=== PATIENT | male | born 1950 | race Two or more races ===

== ENCOUNTER 2019-07-02 07:51 | Emergency (ER) | payer OTHER ==
[~2019-07-02] VITALS: Ht 167.6 cm; Wt 113.4 kg
[2019-07-02 08:40] LABS: Platelet Count (auto) 92 10^3/uL (140-450); White Blood Cell 2.8 10^3/uL (4.4-10.8)
[2019-07-02 08:42] LABS: Hematocrit 38.5 % (41.0-53.0); Hemoglobin 13.1 g/dL (13.5-17.5); Mean Corpuscular Hemoglobin 34.6 pg (28.0-32.0); Mean Corpuscular Hgb Conc. 34.1 g/dL (32.0-36.0); Mean Corpuscular Volume 101.5 fL (80.0-100.0)
[2019-07-02 08:48] LABS: Basophils % (manual) 0 (0.0-2.0); Blast Cells 0; Metamyelocytes % 0; Myelocytes % 0; Promyelocytes % 0; Reactive Lymphocytes 0
[2019-07-02 08:58] LABS: Albumin 3.7 g/dL (3.4-5.0); BUN/Creatinine Ratio 8.5; Calcium 8.2 mg/dL (8.5-10.1); Potassium 4.3 mmol/L (3.5-5.1)
[2019-07-02 09:03] LABS: Bilirubin, Total 2.3 mg/dL (0.2-1.0); Total Protein 7.3 g/dL (6.4-8.2)
[2019-07-02 10:07] LABS: Band Neutrophils % (manual) 12; Lymphocytes % (manual) 19 (10.0-50.0)
[2019-07-02 10:08] LABS: Eosinophils % (manual) 7 (0-7); Monocytes % (manual) 11 (0-12)
[2019-07-02 11:09] LABS: Amphetamine Screen, Urine NEGATIVE (NEGATIVE); Barbiturate Scree,Urine NEGATIVE (NEGATIVE); Benzodiazephine Screen, Urine NEGATIVE (NEGATIVE); Cannabinoid Screen, Urine POSITIVE (NEGATIVE); Cocaine Screen, Urine NEGATIVE (NEGATIVE); Opiate Scree,Urine NEGATIVE (NEGATIVE); Phencyclidine Screen, Urine NEGATIVE (NEGATIVE)
[2019-07-02] MEDS ORDERED: THIAMINE 100mg/ml INJ (200mg/2ml VIAL) IV ONE (11:15)
[2019-07-02] MEDS ORDERED: SODIUM CHLORIDE 0.9% 1,000 ML IV ONE (11:15)
[2019-07-02] MEDS ORDERED: traMADol HCL 50 MG TAB PO PRN (21:00)
[2019-07-02] MEDS ORDERED: NAPROXEN 500 MG TAB PO PRN (21:00)
[2019-07-02] MEDS ORDERED: cloNIDine HCL 0.1 MG TAB PO ONE (22:00)
[2019-07-02] MEDS ORDERED: traZODone HCL 50 MG TAB PO SCH (22:00)
[2019-07-03] MEDS ORDERED: glipiZIDE 5 MG TAB PO SCH (06:00)
[2019-07-03] MEDS ORDERED: metFORMIN HYDROCHLORIDE 500 MG TAB PO SCH (10:00)
[2019-07-03] MEDS ORDERED: ONDANSETRON ODT 4 MG TAB PO ONE (15:15)
[2019-07-03] MEDS ORDERED: LORazepam 0.5 MG TAB PO ONE (16:00)
[2019-07-03] MEDS ORDERED: chlordiazePOXIDE HCL 5 MG CAP PO ONE (16:45)
[2019-07-03] MEDS ORDERED: cloNIDine HCL 0.1 MG TAB PO ONE (16:45)
[2019-07-03 21:08] VITALS: BP 135/64
== END 2019-07-03 20:49 | disposition short-term general hospital (02) ==
LOC: ER 07:51 → EDBD 07:51 → ER 07-03 20:49
DX: F32.9 Major depressive disorder, single episode, unspecified (principal); E11.9 Type 2 diabetes mellitus without complications; I10 Essential (primary) hypertension; M54.9 Dorsalgia, unspecified; G89.29 Other chronic pain
CPT/HCPCS: 36415; 80053; 80307; 80320; 82962; 85007; 85027; 96374; 99285; J3411; J7030; Q0162

== ENCOUNTER 2021-06-29 17:42 | Inpatient (IN) | payer OTHER ==
[~2021-06-29] VITALS: Ht 165.1 cm; Wt 115.0 kg
[2021-06-29] MEDS ORDERED: SODIUM CHLORIDE 0.9% 1,000 ML IV ONE ×3 (18:30→20:45)
[2021-06-29] MEDS ORDERED: ACETAMINOPHEN 325 MG TAB PO ONE (18:30)
[2021-06-29 19:12] LABS: Basophils # (auto) 0 10 ^3/uL (0-0.2); Eosinophils # (auto) 0.1 10 ^3/uL (0-0.8); Hemoglobin 13.3 g/dL (13.5-17.5); Lymphocytes # (auto) 0.3 10 ^3/uL (0.4-5.4); Monocytes # (auto) 0.4 10 ^3/uL (0-1.3)
[2021-06-29 19:16] LABS: Basophils % (auto) 0.3 % (0.0-2.0); Eosinophils % (auto) 1.4 % (0.0-7.0); Hematocrit 37.9 % (41.0-53.0); Mean Corpuscular Hemoglobin 35.1 pg (28.0-32.0); Mean Corpuscular Hgb Conc. 35.1 g/dL (32.0-36.0); Neutrophils # (auto) 6.9 10 ^3/uL (1.6-8.6); Neutrophils % (auto) 89.3 % (37.0-80.0); Nucleated Red Blood Cells % 0.1 %; Red Blood Cells 3.79 10^6/uL (4.5-5.90); Red Cell Distribution Width 14.8 % (11.8-14.3); White Blood Cell 7.7 10^3/uL (4.4-10.8)
[2021-06-29 19:22] LABS: Albumin 2.9 g/dL (3.4-5.0); Anion Gap 8 (5-15); Blood Urea Nitrogen 9 mg/dL (7-18); Calcium 7.8 mg/dL (8.5-10.1); Carbon Dioxide 22 mmol/L (21-32); Chloride 105 mmol/L (98-107); Glucose 180 mg/dL (74-106); Potassium 3.2 mmol/L (3.5-5.1); Sodium 135 mmol/L (136-145)
[2021-06-29 19:27] LABS: Alanine Aminotransferase 26 U/L (16-61); Alkaline Phosphatase 70 U/L (45-117); Aspartate Aminotransferase 53 U/L (15-37); BUN/Creatinine Ratio 9.3; Bilirubin, Total 1.5 mg/dL (0.2-1.0); GFR African American 98 mL/min; GFR Non-African American 81 mL/min; Total Protein 7.4 g/dL (6.4-8.2)
[2021-06-29 19:38] LABS: Lactic Acid w/Reflex 3.2 mmol/L (0.4-2.0)
[2021-06-29] MEDS ORDERED: CEFTRIAXONE SODIUM 2 GM in D5W 5% 50 ML IV ONE (21:30)
[2021-06-29] MEDS ORDERED: POTASSIUM CHL 20 Meq TABLET PO ONE (21:45)
[2021-06-29] MEDS ORDERED: AZITHROMYCIN 500MG/ 250ML 250 ML IV ONE (21:45)
[2021-06-30] MEDS ORDERED: SODIUM CHLORIDE 0.9% 1,000 ML IV ONE
[2021-06-30] MEDS ORDERED: ACETAMINOPHEN 325 MG TAB PO PRN (01:15)
[2021-06-30] MEDS ORDERED: MORPHINE SULF INJ 2 MG/ML SYRINGE 1ML IV PRN (01:15)
[2021-06-30] MEDS ORDERED: DEXTROSE (50%) 50ML SYRG IV PRN (01:15)
[2021-06-30] MEDS ORDERED: NITROGLYCERIN 0.4 MG SL TAB SL PRN (01:15)
[2021-06-30] MEDS ORDERED: ONDANSETRON HCL 4 MG/2 ML VIAL IV PRN (01:15)
[2021-06-30] MEDS ORDERED: cefTRIAXone SOD 1,000 MG VL ONE (01:15)
[2021-06-30] MEDS ORDERED: HYDROcodone-ACET 5/325MG TAB PO PRN (01:15)
[2021-06-30] MEDS: SODIUM CHLORIDE 0.9% 1,000 ML IV SCH (01:22)
[2021-06-30] MEDS: LORazepam 2MG/ML-1ML VIAL IV PRN ×2 (05:09→07:30)
[2021-06-30] MEDS: InsuLIN REG 1unit/0.01ml Soln (100units/ml) SC SCH ×4 (06:32→23:42)
[2021-06-30] MEDS: ACCU-CHEK COMFORT CURVE STRIP VI SCH ×4 (06:36→23:12)
[2021-06-30 07:35] LABS: Basophils # (auto) 0 10 ^3/uL (0-0.2); Eosinophils # (auto) 0 10 ^3/uL (0-0.8); Eosinophils % (auto) 0.2 % (0.0-7.0); Hemoglobin 13.5 g/dL (13.5-17.5); Lymphocytes # (auto) 0.3 10 ^3/uL (0.4-5.4); Monocytes # (auto) 0.6 10 ^3/uL (0-1.3)
[2021-06-30 07:37] LABS: Basophils % (auto) 0.2 % (0.0-2.0); Hematocrit 38.4 % (41.0-53.0); Lymphocytes % (auto) 3.4 % (10.0-50.0); Mean Corpuscular Hemoglobin 35.3 pg (28.0-32.0); Mean Corpuscular Hgb Conc. 35.2 g/dL (32.0-36.0); Mean Corpuscular Volume 100.3 fL (80.0-100.0); Monocytes % (auto) 7.8 % (0.0-12.0); Neutrophils # (auto) 6.7 10 ^3/uL (1.6-8.6); Neutrophils % (auto) 88.4 % (37.0-80.0); Red Blood Cells 3.83 10^6/uL (4.5-5.90); Red Cell Distribution Width 15.3 % (11.8-14.3); White Blood Cell 7.5 10^3/uL (4.4-10.8)
[2021-06-30 07:52] LABS: Albumin 2.8 g/dL (3.4-5.0); Calcium 7.9 mg/dL (8.5-10.1); Potassium 4.1 mmol/L (3.5-5.1)
[2021-06-30 07:56] LABS: BUN/Creatinine Ratio 12.2; Bilirubin, Total 2.2 mg/dL (0.2-1.0); Total Protein 7.3 g/dL (6.4-8.2)
[2021-06-30 08:22] LABS: Urine Bacteria NONE SEEN /hpf (None Seen); Urine Blood 1+ /uL (Negative); Urine Specific Gravity 1.008 (1.001-1.035); Urine WBC <1 /hpf (0 - 3)
[2021-06-30] MEDS: THIAMINE HCL 100 MG TAB PO SCH (09:40)
[2021-06-30] MEDS: amLODIPine BESYLATE 5 MG TAB PO SCH (09:40)
[2021-06-30] MEDS: MULTIPLE VITAMIN TAB PO SCH (09:40)
[2021-06-30] MEDS: FAMOTIDINE (10MG/ML) 2ML VL IV SCH ×2 (09:40→23:11)
[2021-06-30] MEDS: cefTRIAXone 1GM/50ML D5W 50 ML IV SCH (09:41)
[2021-06-30] MEDS: ASCORBIC ACID 500 MG TAB PO SCH ×2 (09:41→23:11)
[2021-06-30] MEDS: ZINC SULFATE 220mg CAP or TAB PO SCH (09:41)
[2021-06-30] MEDS: ENOXAPARIN SOD 40 MG/0.4 ML SYRINGE SC SCH (09:41)
[2021-06-30] MEDS: FOLIC ACID 1 MG TAB PO SCH (09:41)
[2021-06-30] MEDS: AZITHROMYCIN 500MG/ 250ML 250 ML IV SCH (11:43)
[2021-06-30] MEDS: FOLIC ACID 1 MG, MULTIPLE VITAMIN 10 ML, MAGNESIUM SULF SDV 50% 8 MEQ, THIAMINE INJ 100... INJ SCH ×5 (14:00)
[2021-07-01] VITALS (7 sets, daily range): BP systolic 140–161; BP diastolic 78–92
[2021-07-01] MEDS: hydrALAZINE HCL 20 MG/ML VL IV PRN (00:19)
[2021-07-01] MEDS ORDERED: METF-370 PO (02:06)
[2021-07-01] MEDS ORDERED: GLIP10TA9 PO (02:06)
[2021-07-01 06:28] LABS: Basophils # (auto) 0 10 ^3/uL (0-0.2); Eosinophils # (auto) 0.1 10 ^3/uL (0-0.8); Hemoglobin 12.1 g/dL (13.5-17.5); Lymphocytes # (auto) 0.4 10 ^3/uL (0.4-5.4); Neutrophils # (auto) 2.6 10 ^3/uL (1.6-8.6); Red Blood Cells 3.36 10^6/uL (4.5-5.90); White Blood Cell 3.6 10^3/uL (4.4-10.8)
[2021-07-01] MEDS: ACCU-CHEK COMFORT CURVE STRIP VI SCH ×4 (06:41→22:04)
[2021-07-01 06:44] LABS: Basophils % (auto) 0.9 % (0.0-2.0); Eosinophils % (auto) 2.2 % (0.0-7.0); Hematocrit 33.6 % (41.0-53.0); Lymphocytes % (auto) 11.5 % (10.0-50.0); Mean Corpuscular Hemoglobin 35.9 pg (28.0-32.0); Mean Corpuscular Hgb Conc. 35.9 g/dL (32.0-36.0); Mean Corpuscular Volume 100.1 fL (80.0-100.0); Monocytes # (auto) 0.4 10 ^3/uL (0-1.3); Monocytes % (auto) 12.3 % (0.0-12.0); Neutrophils % (auto) 73.1 % (37.0-80.0); Nucleated Red Blood Cells % 0.2 %; Red Cell Distribution Width 15.2 % (11.8-14.3)
[2021-07-01 06:47] LABS: Potassium 3.4 mmol/L (3.5-5.1)
[2021-07-01] MEDS: InsuLIN REG 1unit/0.01ml Soln (100units/ml) SC SCH ×4 (06:48→22:08)
[2021-07-01 06:54] LABS: Albumin 2.8 g/dL (3.4-5.0); BUN/Creatinine Ratio 16.9; Calcium 7.8 mg/dL (8.5-10.1)
[2021-07-01 06:57] LABS: Bilirubin, Total 1.2 mg/dL (0.2-1.0); Total Protein 6.4 g/dL (6.4-8.2)
[2021-07-01] MEDS: cefTRIAXone 1GM/50ML D5W 50 ML IV SCH (08:44)
[2021-07-01] MEDS: FAMOTIDINE (10MG/ML) 2ML VL IV SCH (08:44)
[2021-07-01] MEDS: THIAMINE HCL 100 MG TAB PO SCH (08:45)
[2021-07-01] MEDS: MULTIPLE VITAMIN TAB PO SCH (08:45)
[2021-07-01] MEDS: ZINC SULFATE 220mg CAP or TAB PO SCH (08:45)
[2021-07-01] MEDS: FOLIC ACID 1 MG TAB PO SCH (08:45)
[2021-07-01] MEDS: ENOXAPARIN SOD 40 MG/0.4 ML SYRINGE SC SCH (08:46)
[2021-07-01] MEDS: amLODIPine BESYLATE 5 MG TAB PO SCH (08:46)
[2021-07-01] MEDS: ASCORBIC ACID 500 MG TAB PO SCH ×2 (08:46→22:04)
[2021-07-01] MEDS: AZITHROMYCIN 500MG/ 250ML 250 ML IV SCH (10:41)
[2021-07-01] MEDS: SODIUM CHLORIDE 0.9% 1,000 ML IV SCH (10:41)
[2021-07-01] MEDS: FOLIC ACID 1 MG, MULTIPLE VITAMIN 10 ML, MAGNESIUM SULF SDV 50% 8 MEQ, THIAMINE INJ 100... INJ SCH ×5 (14:15)
[2021-07-01] MEDS ORDERED: LISINOPRIL 20 MG TAB PO ONE (16:00)
[2021-07-01] MEDS ORDERED: POTASSIUM CHL 20 Meq TABLET PO ONE (16:00)
[2021-07-01] MEDS: TEMAZEPAM 15 MG CAP PO PRN (22:51)
[2021-07-02 05:00] VITALS: BP 140/76
[2021-07-02] MEDS: SODIUM CHLORIDE 0.9% 1,000 ML IV SCH (05:15)
[2021-07-02 06:01] LABS: Basophils # (auto) 0 10 ^3/uL (0-0.2); Eosinophils # (auto) 0.3 10 ^3/uL (0-0.8); Hemoglobin 12.4 g/dL (13.5-17.5); Lymphocytes # (auto) 0.6 10 ^3/uL (0.4-5.4); Monocytes # (auto) 0.5 10 ^3/uL (0-1.3); Neutrophils # (auto) 2.1 10 ^3/uL (1.6-8.6); Nucleated Red Blood Cells % 0.1 %; Red Cell Distribution Width 14.8 % (11.8-14.3)
[2021-07-02 06:05] LABS: Basophils % (auto) 1.1 % (0.0-2.0); Eosinophils % (auto) 8.7 % (0.0-7.0); Hematocrit 34.5 % (41.0-53.0); Lymphocytes % (auto) 18.1 % (10.0-50.0); Mean Corpuscular Hemoglobin 35.6 pg (28.0-32.0); Mean Corpuscular Hgb Conc. 35.9 g/dL (32.0-36.0); Mean Corpuscular Volume 99.3 fL (80.0-100.0); Monocytes % (auto) 14.1 % (0.0-12.0); Red Blood Cells 3.48 10^6/uL (4.5-5.90); White Blood Cell 3.5 10^3/uL (4.4-10.8)
[2021-07-02 06:31] LABS: Anion Gap 7 (5-15); Blood Urea Nitrogen 13 mg/dL (7-18); Calcium 8.3 mg/dL (8.5-10.1); Carbon Dioxide 23 mmol/L (21-32); Chloride 106 mmol/L (98-107); Glucose 162 mg/dL (74-106); Magnesium 1.8 mg/dL (1.6-2.6); Potassium 3.6 mmol/L (3.5-5.1); Sodium 136 mmol/L (136-145)
[2021-07-02 06:37] LABS: BUN/Creatinine Ratio 17.8; Cholesterol 126 mg/dL (< 200); GFR African American 136 mL/min; GFR Non-African American 113 mL/min; HDL Cholesterol 33 mg/dL (40-59); LDL Cholesterol 77 mg/dL (< 100); Triglycerides 124 mg/dL (< 150)
[2021-07-02] MEDS: ACCU-CHEK COMFORT CURVE STRIP VI SCH ×4 (06:41→22:03)
[2021-07-02] MEDS: InsuLIN REG 1unit/0.01ml Soln (100units/ml) SC SCH ×4 (06:42→22:14)
[2021-07-02] MEDS ORDERED: ADENOSINE 92 MG in GIVE UN-DILUTED 0 ML IV ONE (07:45)
[2021-07-02 09:00] VITALS: BP 150/79
[2021-07-02] MEDS: cefTRIAXone 1GM/50ML D5W 50 ML IV SCH (09:00)
[2021-07-02] MEDS: ENOXAPARIN SOD 40 MG/0.4 ML SYRINGE SC SCH (10:00)
[2021-07-02] MEDS: FOLIC ACID 1 MG TAB PO SCH (10:02)
[2021-07-02] MEDS: AZITHROMYCIN 500MG/ 250ML 250 ML IV SCH (10:02)
[2021-07-02] MEDS: amLODIPine BESYLATE 5 MG TAB PO SCH (10:03)
[2021-07-02] MEDS: ZINC SULFATE 220mg CAP or TAB PO SCH (10:03)
[2021-07-02] MEDS: ASCORBIC ACID 500 MG TAB PO SCH ×2 (10:03→22:03)
[2021-07-02] MEDS: THIAMINE HCL 100 MG TAB PO SCH (10:03)
[2021-07-02] MEDS: MULTIPLE VITAMIN TAB PO SCH (10:03)
[2021-07-02] MEDS: LISINOPRIL 20 MG TAB PO SCH (10:04)
[2021-07-02] MEDS: hydrALAZINE HCL 20 MG/ML VL IV PRN (12:54)
[2021-07-02 13:00] VITALS: BP 162/93
[2021-07-02] MEDS ORDERED: POTASSIUM CHL 20 Meq TABLET PO ONE (15:15)
[2021-07-02] MEDS ORDERED: MAGNESIUM SULFATE 1GM/100ML 100 ML IV ONE (15:15)
[2021-07-02] MEDS ORDERED: METOPROLOL TARTRATE 25 MG TAB PO ONE ×2 (15:15→17:30)
[2021-07-02 17:00] VITALS: BP 150/94
[2021-07-02 22:12] VITALS: BP 150/88
[2021-07-02] MEDS: TEMAZEPAM 15 MG CAP PO PRN (22:52)
[2021-07-03 05:26] VITALS: BP 160/87
[2021-07-03] MEDS: hydrALAZINE HCL 20 MG/ML VL IV PRN (06:16)
[2021-07-03] MEDS: ACCU-CHEK COMFORT CURVE STRIP VI SCH ×3 (06:17→17:00)
[2021-07-03] MEDS: InsuLIN REG 1unit/0.01ml Soln (100units/ml) SC SCH ×3 (06:20→17:00)
[2021-07-03 06:50] LABS: INR 1.1 (0.9-1.15)
[2021-07-03 06:55] LABS: Magnesium 1.7 mg/dL (1.6-2.6); Potassium 3.8 mmol/L (3.5-5.1)
[2021-07-03 09:00] VITALS: BP 139/79
[2021-07-03] MEDS ORDERED: METOPROLOL TARTRATE 25 MG TAB PO SCH ×2 (10:00)
[2021-07-03] MEDS: cefTRIAXone 1GM/50ML D5W 50 ML IV SCH (11:58)
[2021-07-03] MEDS: ASCORBIC ACID 500 MG TAB PO SCH (12:00)
[2021-07-03] MEDS: FOLIC ACID 1 MG TAB PO SCH (12:00)
[2021-07-03] MEDS: ZINC SULFATE 220mg CAP or TAB PO SCH (12:00)
[2021-07-03] MEDS: ENOXAPARIN SOD 40 MG/0.4 ML SYRINGE SC SCH (12:01)
[2021-07-03] MEDS: MULTIPLE VITAMIN TAB PO SCH (12:01)
[2021-07-03] MEDS: THIAMINE HCL 100 MG TAB PO SCH (12:01)
[2021-07-03] MEDS: amLODIPine BESYLATE 5 MG TAB PO SCH (12:12)
[2021-07-03] MEDS: LISINOPRIL 20 MG TAB PO SCH (12:13)
[2021-07-03] MEDS: AZITHROMYCIN 500MG/ 250ML 250 ML IV SCH (12:26)
[2021-07-03] MEDS ORDERED: MAGNESIUM SULFATE 1GM/100ML 100 ML IV ONE (12:30)
[2021-07-03] MEDS ORDERED: POTASSIUM CHL 20 Meq TABLET PO ONE (12:30)
[2021-07-03] MEDS ORDERED: LEVO500T31 PO (12:32)
[2021-07-03 13:31] VITALS: BP 176/87
[2021-07-03] MEDS ORDERED: HYDR12.56 PO (14:33)
[2021-07-03] MEDS ORDERED: MELA3TAB27 PO (14:33)
[2021-07-03] MEDS ORDERED: POTA10TA51 PO (14:33)
[2021-07-03] MEDS ORDERED: TRAZ50TA2 PO (14:33)
[2021-07-03] MEDS ORDERED: FURO20TA3 PO (14:33)
[2021-07-03] MEDS ORDERED: ASPI-543 PO (14:33)
[2021-07-03] MEDS ORDERED: BENA40TA8 PO (14:33)
[2021-07-03] MEDS ORDERED: HCTZ 25 MG TAB PO ONE (14:45)
[2021-07-03 16:38] VITALS: BP 126/72
[2021-07-03 19:55] VITALS: BP 149/81
== END 2021-07-03 21:38 | disposition home health service (06) | DRG 871 ==
LOC: EDBD 17:42 → ER 17:42 → TELE 06-30 01:01 → TELE-WESTW 06-30 23:00
PROVIDERS: ADMIT Nurse Practitioner Family; ATTEND Internal Medicine
DX: A41.9 Sepsis, unspecified organism (principal); J69.0 Pneumonitis due to inhalation of food and vomit; G92 Toxic encephalopathy; R65.20 Severe sepsis without septic shock; E87.6 Hypokalemia; K70.30 Alcoholic cirrhosis of liver without ascites; F10.129 Alcohol abuse with intoxication, unspecified; Z20.822 Contact with and (suspected) exposure to COVID-19; E78.5 Hyperlipidemia, unspecified; D69.59 Other secondary thrombocytopenia; R16.1 Splenomegaly, not elsewhere classified; E66.9 Obesity, unspecified; Y90.6 Blood alcohol level of 120-199 mg/100 ml; E11.9 Type 2 diabetes mellitus without complications; F32.9 Major depressive disorder, single episode, unspecified; F41.9 Anxiety disorder, unspecified; Z68.39 Body mass index [BMI] 39.0-39.9, adult; I10 Essential (primary) hypertension; Z71.41 Alcohol abuse counseling and surveillance of alcoholic; Z63.4 Disappearance and death of family member
CPT/HCPCS: 36415; 71045; 71250; 78452; 80048; 80053; 80061; 80320; 81001; 82962; 83036; 83605; 83735; 83880; 84132; 84484; 85025; 85610; 87040; 87086; 87426; 93005; 93017; 93306; 93886; 96361; 96365; 97163; G0378; J0153; J0696; J1815; J3490; J7060

== ENCOUNTER 2022-01-14 20:23 | Emergency (ER) | payer OTHER ==
[~2022-01-14] VITALS: Ht 167.6 cm; Wt 110.7 kg
[~2022-01-14 20:23] MED LIST: ASPI-543 PO; BENA40TA8 PO; FURO20TA3 PO; GLIP10TA9 PO; HYDR12.56 PO; LEVO500T31 PO; MELA3TAB27 PO; METF-370 PO; POTA10TA51 PO; TRAZ50TA2 PO
[2022-01-14 20:34] VITALS: BP 162/99
[2022-01-14 22:09] LABS: Urine Bacteria NONE SEEN /hpf (None Seen); Urine Blood TRACE /uL (Negative); Urine Specific Gravity 1.005 (1.001-1.035); Urine WBC <1 /hpf (0 - 3)
[2022-01-14 22:28] LABS: Amphetamine Screen, Urine NEGATIVE (NEGATIVE); Barbiturate Scree,Urine NEGATIVE (NEGATIVE); Benzodiazephine Screen, Urine NEGATIVE (NEGATIVE); Cannabinoid Screen, Urine NEGATIVE (NEGATIVE); Cocaine Screen, Urine NEGATIVE (NEGATIVE); Opiate Scree,Urine NEGATIVE (NEGATIVE); Phencyclidine Screen, Urine NEGATIVE (NEGATIVE)
[2022-01-14 23:07] LABS: Basophils # (auto) 0 10 ^3/uL (0-0.2); Eosinophils # (auto) 0.4 10 ^3/uL (0-0.8); Mean Corpuscular Hgb Conc. 36.3 g/dL (32.0-36.0); Mean Corpuscular Volume 93.8 fL (80.0-100.0)
[2022-01-14 23:10] LABS: Basophils % (auto) 0.7 % (0.0-2.0); Eosinophils % (auto) 11.5 % (0.0-7.0); Hematocrit 36.5 % (41.0-53.0); Hemoglobin 13.2 g/dL (13.5-17.5); Lymphocytes % (auto) 32.7 % (10.0-50.0); Monocytes # (auto) 0.2 10 ^3/uL (0-1.3); Monocytes % (auto) 7.7 % (0.0-12.0); Neutrophils # (auto) 1.5 10 ^3/uL (1.6-8.6); Neutrophils % (auto) 47.4 % (37.0-80.0); Nucleated Red Blood Cells % 0.3 %; Red Blood Cells 3.89 10^6/uL (4.5-5.90); Red Cell Distribution Width 14.2 % (11.8-14.3); White Blood Cell 3.2 10^3/uL (4.4-10.8)
[2022-01-14 23:35] LABS: Albumin 3.1 g/dL (3.4-5.0); Calcium 7.7 mg/dL (8.5-10.1); Potassium 3.4 mmol/L (3.5-5.1)
[2022-01-14 23:43] LABS: BUN/Creatinine Ratio 10.4; Bilirubin, Total 1.7 mg/dL (0.2-1.0); Total Protein 7.1 g/dL (6.4-8.2)
== END 2022-01-15 04:38 | disposition home or self-care (01) ==
LOC: EDBD 20:32 → ER 20:32
DX: R53.1 Weakness (principal); E11.9 Type 2 diabetes mellitus without complications; E78.5 Hyperlipidemia, unspecified; I10 Essential (primary) hypertension; R51.9 Headache, unspecified; R42 Dizziness and giddiness; F10.129 Alcohol abuse with intoxication, unspecified; Z59.00 Homelessness unspecified; Y90.8 Blood alcohol level of 240 mg/100 ml or more
CPT/HCPCS: 36415; 70450; 70486; 71046; 72125; 80053; 80307; 80320; 81001; 84484; 85025; 93005